=== PATIENT | male | born 1980 | race Caucasian/White ===

== ENCOUNTER 2023-08-22 21:11 | Emergency (ER) | payer OTHER, BC ==
[~2023-08-22] VITALS: Ht 177.8 cm; Wt 104.5 kg
[2023-08-22 21:38] VITALS: TEMP 98
[2023-08-22 23:00] VITALS: BP 134/78; PULSE 71; RESP 17
[2023-08-22] MEDS ORDERED: ERYTHROMYCIN 0.5% 3.5 GM TUBE OPHTHALMIC OINTMENT OD ONE (23:45)
== END 2023-08-23 00:12 | disposition home or self-care (01) ==
LOC: EMS 21:46
DX: T15.01XA Foreign body in cornea, right eye, initial encounter (principal); F17.210 Nicotine dependence, cigarettes, uncomplicated; W44.9XXA Unspecified foreign body entering into or through a natural orifice, initial encounter; Y93.89 Activity, other specified; Y92.89 Other specified places as the place of occurrence of the external cause; Y99.8 Other external cause status
CPT/HCPCS: 65220; 65222; 99284; Z7502; Z7610